=== PATIENT | male | born 1980 | race African-American/Black ===

== ENCOUNTER 2017-07-08 00:10 | Emergency (ER) | payer MEDICARE, OTHER ==
[~2017-07-08] VITALS: Ht 180.3 cm; Wt 92.5 kg
[~2017-07-08 00:10] MED LIST: CIPROFLOXACIN500 M2 ORAL; ROBITUSSIN COU118 M4 PO; ZITHROMAX250 MG ORAL
[2017-07-08 00:13] VITALS: BP 139/82
[2017-07-08] MEDS ORDERED: NKM (00:18)
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
[2017-07-08 01:07] LABS: APPEARANCE,URINE CLEAR; KETONES,URINE NEGATIVE (NEGATIVE); LEUKOCYTE ESTERASE ,URINE NEGATIVE (NEGATIVE); NITRITE,URINE NEGATIVE (NEGATIVE); PH,URINE 5 (4.5-8.0); PROTEIN,URINE NEGATIVE (NEGATIVE); UROBILINOGEN,URINE NORMAL MG/DL (0.0-1.0)
[2017-07-08 01:31] VITALS: BP 139/82
== END 2017-07-08 01:35 | disposition home or self-care (01) ==
LOC: EMR 00:32
DX: N48.89 Other specified disorders of penis (principal); Z88.0 Allergy status to penicillin
CPT/HCPCS: 81003; 99283

== ENCOUNTER 2017-08-13 22:23 | Emergency (ER) | payer MEDICARE, OTHER ==
[~2017-08-13] VITALS: Ht 180.3 cm; Wt 92.5 kg
[~2017-08-13 22:23] MED LIST changes: +NKM
[2017-08-14] MEDS ORDERED: RISPERDAL1 MG PO (00:07)
[2017-08-14 00:21] VITALS: BP 128/87
[2017-08-14 00:22] VITALS: BP 128/87
--- NOTE | 2017-08-14 01:53 | Emergency Room Report ---
History of Present Illness General Chief Complaint: Medication Refill Source: Patient Present Illness HPI Patient is a 36-year-old male who presented for medication refill. Patient stated that he had intermittently hears voices and had run out of his medications. He reports having intermittent auditory hallucinations. He denies any suicidal thoughts. He denies any current hallucinations. He denies substance abuse. Patient states that he had previously been on medications but cannot member the name Allergies: Coded Allergies: PENICILLINS (Unverified Adverse Reaction, Unknown, 03/30/16) Patient History Past Medical History: see triage record Reviewed Nursing Documentation: PMH: Agreed, PSxH: Agreed Nursing Documentation-PMH Past Medical History: No Stated History Review of Systems All Other Systems: negative except mentioned in HPI Physical Exam Vital Signs Date Time Temp Pulse Resp B/P (MAP) Pulse Ox O2 Delivery O2 Flow Rate FiO2 08/13/17 22:29 97.9 72 16 130/89 98 Room Air Sp02 EP Interpretation: reviewed, normal General Appearance: alert/responsive, no apparent distress, GCS 15, non-toxic Head: atraumatic Eyes: PERRL, lids + conjunctiva normal ENT: hearing intact, no angioedema Neck: supple/symm/no masses, no meningismus Respiratory: effort normal, no wheezing, chest symmetrical Cardiovascular: regular rate, rhythm, no edema Cardiovascular #2: 2+ carotid (R), 2+ carotid (L), 2+ dorsalis pedis (R), 2+ dorsalis pedis (L) Gastrointestinal: non-tender, no mass, non-distended, no rebound/guarding, normal bowel sounds Musculoskeletal: gait & station normal, strength & tone normal, normal ROM, non -tender Neurologic: normal inspection, CN II-XII intact, oriented x3, sensory intact, normal speech Psychiatric: normal inspection, judgment & insight normal, memory normal, mood normal, no suicidal/homicidal ideation Skin: no rash, well hydrated Lymphatic: normal inspection Medical Decision Making Diagnostic Impression: Primary Impression: Encounter for medication refill Additional Impression: Schizophrenia ER Course Patient presented for medication refill. The patient cannot state what his medications are. The patient was given oral Zyprexa as well as prescription for Risperdal. Patient is advised followup as an outpatient with a psychiatrist. The patient is advised to follow up with primary care doctor in 1 -2 days. Patient is advised to return if any worsening condition or if any changes in status that are concerning. This report is dictated with Froont fixture repairer fabricator software which may occasionally lead to discrepancies related to use of this software. Last Vital Signs Date Time Temp Pulse Resp B/P (MAP) Pulse Ox O2 Delivery O2 Flow Rate FiO2 08/14/17 00:22 97.9 78 16 128/87 98 Room Air Status: improved Disposition: HOME, SELF-CARE Condition: Stable Scripts Risperidone* (RISPERDAL*) 1 Mg Tablet 1 MG PO DAILY, #14 TAB Prov: Hu Wellington 08/14/17 Referrals: NOT CHOSEN [facility]/,REFERRING (PCP) Patient Instructions: Medicine Refill at the Emergency Department Hu Wellington Aug 14, 2017 01:53
== END 2017-08-14 00:25 | disposition home or self-care (01) ==
LOC: EMR 23:09
DX: Z76.0 Encounter for issue of repeat prescription (principal); F20.9 Schizophrenia, unspecified; Z88.0 Allergy status to penicillin
CPT/HCPCS: 99283

== ENCOUNTER 2017-09-14 13:25 | Emergency (ER) | payer MEDICARE, OTHER ==
[~2017-09-14] VITALS: Ht 180.3 cm; Wt 90.7 kg
[~2017-09-14 13:25] MED LIST changes: +RISPERDAL1 MG PO
[2017-09-14] MEDS ORDERED: BENADRYL ALLERG25 M1 PO (14:18)
[2017-09-14] MEDS ORDERED: PERMETHRIN60 GM TOPIC (14:18)
--- NOTE | 2017-09-14 14:18 | Emergency Room Report ---
History of Present Illness General Chief Complaint: Skin Rash/Abscess Source: Patient Present Illness HPI 36-year-old male presents to the emergency department complaining of exposure to scabies as well as itching rash times 5 days. Patient states that his older roommate called in and stated that he was diagnosed with scabies. Patient states that he's been itching constantly on the bilateral hands, wrists, hips and back. Patient denies fevers or chills. Denies lesions/rashes elsewhere on the body. Denies new medications or body washes or creams. Denies swelling of the lips, tongue , throat or airway. Denies wheezing, or shortness of breath. Denies recent travel, recent illness or ill contacts. denies blisters, oral lesions, or sloughing of the skin. Allergies: Coded Allergies: PENICILLINS (Unverified Adverse Reaction, Unknown, 03/30/16) Patient History Past Medical History: see triage record Past Surgical History: none Pertinent Family History: none Immunizations: UTD Reviewed Nursing Documentation: PMH: Agreed, PSxH: Agreed Nursing Documentation-PMH Past Medical History: No Stated History Review of Systems All Other Systems: negative except mentioned in HPI Physical Exam Vital Signs Date Time Temp Pulse Resp B/P (MAP) Pulse Ox O2 Delivery O2 Flow Rate FiO2 09/14/17 13:39 97.9 78 16 134/79 96 Room Air Sp02 EP Interpretation: reviewed, normal General Appearance: no apparent distress, alert, GCS 15, non-toxic Head: normocephalic, atraumatic Eyes: bilateral eye normal inspection, bilateral eye PERRL ENT: hearing grossly normal, no angioedema, normal voice Neck: full range of motion Respiratory: lungs clear, normal breath sounds, no wheezing, speaking full sentences Cardiovascular #1: regular rate, rhythm Musculoskeletal: back normal, gait/station normal, normal range of motion, non- tender Neurologic: alert, oriented x3, responsive, motor strength/tone normal, sensory intact, speech normal, grossly normal Psychiatric: judgement/insight normal Skin: normal color, warm/dry, well hydrated, rash - Papular skin color rash to the bilateral hands, wrists, hips and back. Some linear pattern noted, no blisters no vesicles. No erythema. Lymphatic: no adenopathy Medical Decision Making PA Attestation Dr. slaughter is my supervising Physician whom patient management has been discussed with. Diagnostic Impression: Primary Impression: Rash and other nonspecific skin eruption ER Course 36-year-old male presents to the emergency department complaining of exposure to scabies as well as itching rash times 5 days. Patient states that his older roommate called in and stated that he was diagnosed with scabies. Patient states that he's been itching constantly on the bilateral hands, wrists, hips and back. Patient denies fevers or chills. Denies lesions/rashes elsewhere on the body. Denies new medications or body washes or creams. Denies swelling of the lips, tongue , throat or airway. Denies wheezing, or shortness of breath. Denies recent travel, recent illness or ill contacts. denies blisters, oral lesions, or sloughing of the skin. Ddx considered but are not limited to cellulitis, scabies, shingles, varicella, dermatitis, urticaria, eczema, tinea, viral exanthem, SJS Vital signs: are WNL, pt. is afebrile H&PE are most consistent with pruritic rash possible scabies. no blisters or vesicles ORDERS: none required at this time, the diagnosis is clinical ED INTERVENTIONS: None required at this time. DISCHARGE: At this time pt. is stable for d/c to home. Will provide printed patient care instructions, and any necessary prescriptions. Care plan and follow up instructions have been discussed with the patient prior to discharge. Last Vital Signs Date Time Temp Pulse Resp B/P (MAP) Pulse Ox O2 Delivery O2 Flow Rate FiO2 09/14/17 13:39 97.9 78 16 134/79 96 Room Air Disposition: HOME, SELF-CARE Condition: Stable Scripts Diphenhydramine Hcl (BENADRYL ALLERGY) 25 Mg Tablet 25 MG PO Q6HR, #20 TAB Prov: Rowena Paulino.Marlon 09/14/17 Permethrin* (ELIMITE*) 60 Gm Cream..g. 1 APPLIC TOPIC ONCE, #60 GM 0 Refills Apply cream from head to toe; leave on for 8-14 hours before washing off with water; may reapply in 1 week if live mites appear. Prov: Rowena Paulino 09/14/17 Patient Instructions: Rash, Scabies, Pediatric Additional Instructions: Take medications as directed. Follow up with a Primary Care Provider in 3-5 days, even if your symptoms have resolved. --Please review list of primary care clinics, if you do not already have a primary care provider Return sooner to ED if new symptoms occur, or current symptoms become worse. - Please note that this Emergency Department Report was dictated using AuthorityLabstv news director technology software, occasionally this can lead to erroneous entry secondary to interpretation by the dictation equipment. Rowena Paulino Sep 14, 2017 14:18
[2017-09-14 14:27] VITALS: BP 134/79
== END 2017-09-14 14:25 | disposition home or self-care (01) ==
LOC: EMR 14:15
DX: R21 Rash and other nonspecific skin eruption (principal); Z88.0 Allergy status to penicillin
CPT/HCPCS: 99283

== ENCOUNTER 2018-01-19 01:05 | Emergency (ER) | payer MEDICARE, OTHER ==
[~2018-01-19] VITALS: Ht 175.3 cm; Wt 92.1 kg
[~2018-01-19 01:05] MED LIST changes: +BENADRYL ALLERG25 M1 PO; +PERMETHRIN60 GM TOPIC
[2018-01-19 02:55] VITALS: BP 121/72
[2018-01-19] MEDS ORDERED: DIPHENHYDRAMINE25 M1 ORAL (03:05)
[2018-01-19] MEDS ORDERED: PERMETHRIN60 GM TOPIC (03:05)
--- NOTE | 2018-01-19 21:33 | Emergency Room Report ---
History of Present Illness General Chief Complaint: Skin Rash/Abscess Source: Patient Present Illness HPI 37-year-old male presents ED complaining of rash times one day. States it is all over his body. States it is very itchy. Denies pain. Denies fevers chills. Denies sick contacts or recent travel. No other aggravating relieving factors. Denies any other associated symptoms Allergies: Coded Allergies: PENICILLINS (Unverified Adverse Reaction, Unknown, 03/30/16) Patient History Past Medical History: none Past Surgical History: none Pertinent Family History: none Social History: Denies: smoking, alcohol use, drug use Immunizations: UTD Reviewed Nursing Documentation: PMH: Agreed; PSxH: Agreed Nursing Documentation-PMH Past Medical History: No Stated History Review of Systems All Other Systems: negative except mentioned in HPI Physical Exam Vital Signs Date Time Temp Pulse Resp B/P (MAP) Pulse Ox O2 Delivery O2 Flow Rate FiO2 01/19/18 01:20 98.4 79 18 121/72 98 Room Air 98.4 Sp02 EP Interpretation: reviewed, normal General Appearance: no apparent distress, alert, GCS 15, non-toxic Head: normocephalic Eyes: bilateral eye normal inspection, bilateral eye PERRL ENT: normal ENT inspection Neck: normal inspection Respiratory: normal inspection Cardiovascular #1: normal inspection Gastrointestinal: normal inspection Rectal: deferred Genitourinary: no CVA tenderness Musculoskeletal: normal inspection Neurologic: alert, oriented x3, responsive, motor strength/tone normal, sensory intact, speech normal Psychiatric: normal inspection Skin: other - linear excoriations arms and legs, abdomen Lymphatic: normal inspection Medical Decision Making Diagnostic Impression: Primary Impression: Rash ER Course Hospital Course 37-year-old male presents to ED with rash Differential diagnoses include: Cellulitis, dermatitis, insect bite, abscess Clinical course Patient placed on stretcher. After initial history, physical exam reveals a middle aged male in no acute distress. On exam there are multiple linear excoriations noted to the legs arms and chest. Consistent with scabies. Discussed findings with patient. On review of EMR patient had been previously here for scabies. I'll prescribe permethrin Diagnosis - rash stable and discharged to home with prescription for elimite. Instructed to followup with PMD. Instructed return to ED if symptoms recur or worsen Last Vital Signs Date Time Temp Pulse Resp B/P (MAP) Pulse Ox O2 Delivery O2 Flow Rate FiO2 01/19/18 03:15 98.4 79 18 121/72 98 Room Air 98.4 Status: improved Disposition: HOME, SELF-CARE Condition: Stable Scripts Diphenhydramine Hcl* (DIPHENHYDRAMINE HCL*) 25 Mg Capsule 25 MG ORAL Q6H PRN for Itching for 5 Days, #30 CAP 0 Refills Prov: Porfirio Arndt MD 01/19/18 Permethrin* (ELIMITE*) 60 Gm Cream..g. 1 APPLIC TOPIC ONCE, #60 GM 0 Refills Apply cream from head to toe; leave on for 8-14 hours before washing off with water; may reapply in 1 week if live mites appear. Prov: Porfirio Arndt MD 01/19/18 Referrals: NOT CHOSEN [facility]/,REFERRING (PCP) Patient Instructions: Contact Precautions, [id number] Porfirio Arndt MD Jan 19, 2018 21:33
== END 2018-01-19 03:15 | disposition home or self-care (01) ==
LOC: EMR 02:00
DX: R21 Rash and other nonspecific skin eruption (principal); Z88.0 Allergy status to penicillin
CPT/HCPCS: 99284

== ENCOUNTER 2020-08-05 20:42 | Emergency (ER) | payer MEDICARE, OTHER ==
[~2020-08-05] VITALS: Ht 175.3 cm; Wt 86.2 kg
[~2020-08-05 20:42] MED LIST changes: +DIPHENHYDRAMINE25 M1 ORAL
--- NOTE | 2020-08-05 20:52 | NUR ---
ED Nurse Note: pt presents to ED needing a medication refill for Risperidone 1 mg, reports not taking it for 1 month.no other complaints at this time
[2020-08-05 20:54] VITALS: BP 136/81
[2020-08-05] MEDS ORDERED: RISPERIDONE M-TA1 MG PO (20:56)
--- NOTE | 2020-08-05 20:56 | Emergency Room Report ---
History of Present Illness General Chief Complaint: Medication Refill Source: Patient Present Illness HPI 39-year-old -[place] male with history of bipolar, ADHD, schizophrenia requesting medication refill for risperidone 1 mg p.o. daily. Patient states he is not seen his psychiatrist because "she talks to[him] like[he] is stupid". Patient denies auditory or visual hallucinations. Denies suicidal or homicidal ideation. Patient has been out of his risperidone x3 weeks. He denies any complaints of pain, nausea, vomiting, diarrhea, headache, back pain, or any other symptoms at this time. The patient's symptoms were gradual onset, severity was moderate, duration since 3 weeks. Quality: No pain Past medical history: Schizophrenia, bipolar, ADHD Past surgical history: Denies Smoking: Denies Alcohol use: Denies Drug use: Denies Review of systems: CONST: No fevers or chills, No night sweats PULMONARY: No productive cough, No shortness of breath CARDIAC: No chest pain, No palpitations GI: No vomiting, No diarrhea , No melena_or_BRBPR : No dysuria, No hematuria, No discharge NEURO: No new_focal_weakness_or_numbness, No confusion, No vision changes 14 point Review of Systems is otherwise negative except per HPI Physical Exam: GENERAL: Awake_alert_ nontoxic, no acute distress Spo2 98% on RA -normal EYES: Extraocular muscles are intact. Conjunctivae clear. Lids without swelling. perrla ENT: External nose and ear normal_in_appearance. Oropharynx clear. Head_atraumatic, Moist_oral_mucosa NECK: No JVD. No meningismus. No thyromegaly. Supple. Trachea midline RESP: Normal respiratory effort. Symmetric rise. No stridor. Clear_to_auscultation_No_rales_No_wheezes CARDIAC: Regular rate and regular rhytm. No_significant pedal edema. ABDOMEN: Soft. Nondistended. Nontender_No_rebound_or_guarding. MSK: Normal muscle tone, without rigidity. Extremities without asymmetric deformity or swelling. SKIN: Warm and dry. No visible cyanosis or pallor NEUROLOGIC: Alert, oriented x3. Motor_and_sensation_grossly_intact. No truncal ataxia. Gait_normal Psych: Normal mood and affect, normal judgment and insight. No SI, HI, auditory or visual hallucinations - COORDINATION OF CARE Case was discussed with: Patient Medical Decision Making/Plan: Chart reviewed. Patient has previously been diagnosed with schizophrenia and takes risperidone 1 mg p.o. daily. He currently denies any SI, HI, auditory or visual hallucinations. He is neurologically intact, GCS of 15. He has insurance and set follow-up with a psychiatrist. I will refill his risperidone for 1 week, however will advise him to follow-up with his psychiatrist for continuation of medications. If he is not satisfied with the psychiatrist assigned to him from his insurance, I have advised him to call his insurance for direct referral to a psychiatrist. No psychiatric emergency exists at this time. Pertinent results reviewed with the patient. I educated the patient on the current treatment plan including the risks, benefits, and alternatives. I also discussed the extent and limitations of the current evaluation. The patient expressed understanding and agreement with plan. I recommended PMD follow-up within 1-2 days. Also advised that the patient return to the Emergency Department as soon as possible if they experience any new, persistent, or worsening symptoms. Allergies: Coded Allergies: PENICILLINS (Unverified Adverse Reaction, Unknown, 03/30/16) COVID-19 Screening Contact w/high risk pt: No Experienced COVID-19 symptoms?: No COVID-19 Testing performed IT DESKTOP SUPPORT SPECIALIST: No Physical Exam Vital Signs Date Time Temp Pulse Resp B/P (MAP) Pulse Ox O2 Delivery O2 Flow Rate FiO2 08/05/20 20:44 98.2 80 16 136/81 (99) 98 Room Air Sp02 EP Interpretation: reviewed, normal Medical Decision Making Diagnostic Impression: Primary Impression: Encounter for medication refill Additional Impression: Schizophrenia Last Vital Signs Date Time Temp Pulse Resp B/P (MAP) Pulse Ox O2 Delivery O2 Flow Rate FiO2 08/05/20 20:44 98.2 80 16 136/81 (99) 98 Room Air Disposition: HOME, SELF-CARE Admit Decision Time: 20:55 Condition: Stable Scripts Risperidone (RISPERIDONE M-TAB) 1 Mg Tab.rapdis 1 MG PO DAILY for 7 Days, #7 TAB Prov: Luzmaria Dao D.O. 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 Take your psychiatric medications as prescribed. Follow-up with your doctor sooner if your condition requires a more timely clinical reevaluation. Return to the emergency department immediately if you feel that your condition is worsening or if you have any new or concerning symptoms. Review your discharge instructions and take any prescriptions given as instructed. [facility] PROVIDES FREE OR LOW-COST HEALTH SERVICES TO PEOPLE WHO CAN SHOW PROOF THAT THEY LIVE IN [facility]. TO FIND MORE CLINICS PARTNERED WITH [facility] TO PROVIDE SERVICE, PLEASE CALL . Luzmaria Dao D.O. Aug 05, 2020 20:56
[2020-08-05 21:10] VITALS: BP 136/81
--- NOTE | 2020-08-05 21:10 | NUR ---
ER DISCHARGE NOTE: Patient is cleared to be discharged per ERMD, pt is aox4, on room air, with stable vital signs. pt was given dc and prescription instructions, pt was able to verbalize understanding, pt id band removed without complications. pt is able to ambulate with steady gait. pt took all belongings.
== END 2020-08-05 21:20 | disposition home or self-care (01) ==
LOC: EMR 20:55
DX: Z76.0 Encounter for issue of repeat prescription (principal); F20.9 Schizophrenia, unspecified; Z88.0 Allergy status to penicillin
CPT/HCPCS: 99282

== ENCOUNTER 2020-08-22 09:08 | Emergency (ER) | payer MEDICARE, OTHER ==
[~2020-08-22] VITALS: Ht 180.3 cm; Wt 90.7 kg
[~2020-08-22 09:08] MED LIST changes: +RISPERIDONE M-TA1 MG PO
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
[2020-08-22] MEDS ORDERED: IBUPROFEN600 M1 ORAL (09:27)
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
[2020-08-22 09:32] VITALS: BP 136/88
--- NOTE | 2020-08-22 09:32 | NUR ---
ER DISCHARGE NOTE: Patient is cleared to be discharged per ERMD, pt is aox4, on room air, with stable vital signs. pt was given dc and prescription instructions, pt was able to verbalize understanding, pt id band removed. pt is able to ambulate with steady gait. pt took all belongings.
== END 2020-08-22 09:32 | disposition home or self-care (01) ==
LOC: EMR 09:32
DX: S80.212D Abrasion, left knee, subsequent encounter (principal); S40.812D Abrasion of left upper arm, subsequent encounter; S40.811D Abrasion of right upper arm, subsequent encounter; V09.9XXD Pedestrian injured in unspecified transport accident, subsequent encounter; Z88.0 Allergy status to penicillin
CPT/HCPCS: 99282